=== PATIENT | female | born 1980 | race Caucasian/White ===

== ENCOUNTER → 2017-06-24 | Outpatient (CLI) | payer BC ==
[~2017-06-24] MED LIST: LBT200T PO; PREN1TAB39 PO
== END ==
LOC: LAB 09:41
PROVIDERS: ATTEND Obstetrics & Gynecology
DX: O20.9 Hemorrhage in early pregnancy, unspecified (principal)
CPT/HCPCS: 36415; 84702

== ENCOUNTER → 2017-06-26 | Outpatient (CLI) | payer BC ==
--- NOTE | 2017-06-26 13:01 | Diagnostic Imaging Report ---
PROCEDURE: US OB SINGLE FETUS <14 WKS. TECHNIQUE: Multiple real-time grayscale images were obtained over the gravid uterus in various projections. INDICATION: First trimester vaginal bleeding. There is an intrauterine gestational sac containing a pole. The crown-rump length measurement is 2.2 cm consistent with 9 weeks zero days gestation. heart rate was recorded at 179 beats per minute. There is an area of probable subchronic hemorrhage measuring 2.9 x 1.5 x 2.4 cm. Left ovary was not visualized. The right ovary is unremarkable. No free fluid is seen. IMPRESSION: Single live IUP approximately 9 weeks zero days gestational age with an estimated date of confinement sonographically of 01/29/2018. There is a moderate-sized subchorionic bleed present. Dictated by: Dictated on workstation # [id number]
== END ==
LOC: RAD 12:03
PROVIDERS: ATTEND Obstetrics & Gynecology
DX: O20.9 Hemorrhage in early pregnancy, unspecified (principal); Z3A.09 9 weeks gestation of pregnancy
CPT/HCPCS: 76801

== ENCOUNTER 2017-07-13 16:04 | Emergency (ER) | payer BC ==
[~2017-07-13] VITALS: Ht 157.5 cm; Wt 86.2 kg
--- NOTE | 2017-07-13 17:05 | Diagnostic Imaging Report ---
PROCEDURE: US OB single fetus <14 wks. TECHNIQUE: Multiple real-time grayscale images were obtained over the gravid uterus in various projections. INDICATION: Subchorionic hematoma. FINDINGS: There is an elongated gestational sac present with pole present. Embryonic cardiac activity is present with a rate of 176 beats per minute. [place]-rump length is 5.2 cm indicating gestational age of 11 weeks and 6 days. Multiple hypoechoic regions are present in the placenta and in the subchorionic region indicating probable subchorionic hematoma which measure up to 2.5 x 2.5 x 0.8 cm. Maternal adnexal regions are poorly visualized without evidence of abnormality. IMPRESSION: 1. Elongated gestational sac and multiple small subchorionic hematomas. Short-term ultrasound followup is recommended. 2. Estimated gestational age is 11 weeks and 6 days with sonographic EDC of 01/29/2018. Dictated by: Dictated on workstation # [id number]
[2017-07-13 17:19] LABS: BASOPHILS # (AUTO) 0.1 10^3/uL (0.0-0.1); BASOPHILS % (AUTO) 1 % (0-10); EOSINOPHILS # (AUTO) 0.6 10^3/uL (0.0-0.3); EOSINOPHILS % (AUTO) 5 % (0-10); HEMATOCRIT 39 % (35-52); HEMOGLOBIN 13.3 G/DL (11.5-16.0); LYMPHOCYTES # (AUTO) 1.8 X 10^3 (1.0-4.0); LYMPHOCYTES % (AUTO) 15 % (12-44); MEAN CORPUSCULAR HEMOGLOBIN 28 PG (25-34); MEAN CORPUSCULAR HGB CONC 34 G/DL (32-36); MEAN CORPUSCULAR VOLUME 81 FL (80-99); MEAN PLATELET VOLUME 9.7 FL (7.4-10.4); MONOCYTES # (AUTO) 0.8 X 10^3 (0.0-1.0); MONOCYTES % (AUTO) 7 % (0-12); NEUTROPHILS # (AUTO) 8.5 X 10^3 (1.8-7.8); NEUTROPHILS % (AUTO) 73 % (42-75); PLATELET COUNT 345 10^3/uL (130-400); RED BLOOD COUNT 4.79 10^6/uL (4.35-5.85); RED CELL DISTRIBUTION WIDTH 14.2 % (10.0-14.5); WHITE BLOOD COUNT 11.7 10^3/uL (4.3-11.0)
--- NOTE | 2017-07-13 17:28 | ED GU-Female ---
General Chief Complaint: -Female Stated Complaint: 11.5WEEKS, HEMROGING Nursing Triage Note: PT CO OF GOING TO BATHROOM AND HAVING A STOOL FULL OF BLOOD, PT DENIES CRAMPING OR BACK ACHE. PT STATES DID HAVE BLEEDING AT APPROX 8 WEEKS AND HAD CLOT NOTED Nursing Sepsis Screen: No Definite Risk Source: patient, family, spouse Exam Limitations: no limitations History of Present Illness Date Seen by Provider: Jul 13, 2017 Time Seen by Provider: 16:15 Initial Comments 37-year-old female patient presents to the emergency department on complaints of vaginal bleeding. Patient is currently 11.5 weeks gestation Patient reports she has been bleeding intermittently since 8 weeks gestation. Now is having large clots. Has had 3 ultrasounds are out this showing subchorionic hemorrhage/hematomas. Denies cramping, back pain, fever, dysuria, nausea, vomiting. Patient sees Dr. Wen Hodge. Timing/Duration: other (onset and 8 weeks gestation.) Severity/Quality: moderate Location: vaginal Radiation: none Prior Genitourinary Problems: similar symptoms Allergies and Home Medications Allergies Coded Allergies: No Known Drug Allergies (Unverified , 04/07/11) Home Medications Clindamycin HCl 300 Mg Capsule, 300 MG PO QID, #28 Ref 0 Prescribed by: ALEXA MATA on 07/13/172045 Vits W-Ca,Fe,Fa(<1MG) 1 Each Tablet, 1 EACH PO DAILY, (Reported) Constitutional: No chills, No diaphoresis, No dizziness, No fever, No malaise EENTM: no symptoms reported Respiratory: no symptoms reported Cardiovascular: no symptoms reported Gastrointestinal: No abdominal pain, No constipation, No diarrhea, No nausea, No vomiting Genitourinary: see HPI, denies burning, denies discharge, denies dysuria, denies frequency, denies flank pain, denies pain, other ((+) vaginal bleeding) : Yes Musculoskeletal: no symptoms reported Skin: no symptoms reported Psychiatric/Neurological: No Symptoms Reported All Other Systemes Reviewed Negative Unless Noted: Yes (Negative excepted noted.) Past Atduspr-Oqikjq-Bridya Hx Patient Social History Alcohol Use: Denies Use Recreational Drug Use: No Smoking Status: Never a Smoker Recent Foreign Travel: No Contact w/Someone Who Travel: No Recent Infectious Disease Expo: No Recent Hopitalizations: No Physical Abuse: No Sexual Abuse: No Surgeries History of Surgeries: Yes (T&A, Breast reduction) Respiratory History of Respiratory Disorde: No Cardiovascular History of Cardiac Disorders: Yes Neurological History of Neurological Disord: No Reproductive System : Yes (11.5 WEEKS) Last Menstrual Period: Apr 24, 2017 Hx : 2 Hx Para: 1 Hx Total # of Abortions (Spona: 0 Hx Reproductive Disorders: No Female Reproductive Disorders: Denies Gastrointestinal History of Gastrointestinal Di: No Musculoskeletal History of Musculoskeletal Dis: No Endocrine History of Endocrine Disorders: No Psychosocial History of Psychiatric Problem: No Suicide Risk Score: 0 Blood Transfusions History of Blood Disorders: No Reviewed Nursing Assessment Reviewed/Agree w Nursing PMH: Yes Family Medical History Significant Family History: No Pertinent Family Hx Physical Exam Vital Signs Vital Signs - First Documented 07/13/17 07/13/17 16:10 20:41 Temp 96.9 Pulse 88 Resp 18 B/P (MAP) 127/91 (103) Pulse Ox 97 O2 Delivery Room Air Capillary Refill : Less Than 3 Seconds General Appearance: WD/WN, no apparent distress HEENT: PERRL/EOMI, pharynx normal Neck: supple, normal inspection Cardiovascular: normal peripheral pulses, regular rate, rhythm, no edema, no murmur Respiratory: lungs clear, normal breath sounds, no respiratory distress, no accessory muscle use Gastrointestinal: normal bowel sounds, non tender, soft, no organomegaly, no pulsatile mass Back: normal inspection, no CVA tenderness Extremities: no pedal edema, no calf tenderness, normal capillary refill Neurologic/Psychiatric: alert, normal mood/affect, oriented x 3 Skin: normal color, warm/dry Progress/Results/Core Measures Suspected Sepsis Recent Fever Within 48 Hours: No Infection Criteria Present: None New/Unexplained Altered Menta: No Sepsis Screen: No Definite Risk Sepsis Diagnosis: SIRS Temperature:96.9 Pulse: 88 Respiratory Rate: 18 Laboratory Tests 07/13/17 17:12: White Blood Count 11.7H Blood Pressure 127 /91 Mean: 103 Laboratory Tests 07/13/17 17:12: Creatinine 0.69, Platelet Count 345, Total Bilirubin 0.2 Results/Orders Lab Results My Orders Vital Signs/I&O Capillary Refill : Less Than 3 Seconds Blood Pressure Mean: 103 Diagnostic Imaging Diagonstic Imaging: Ultrasound Plain Films/CT/US/NM/MRI: pelvis Comments US OB SINGLE FETUS<14 [id number] PROCEDURE: US OB single fetus <14 wks. TECHNIQUE : Multiple real-time grayscale images were obtained over the gravid uterus in various projections. INDICATION: Subchorionic hematoma. FINDINGS: There is an elongated gestational sac present with pole present. Embryonic cardiac activity is present with a rate of 176 beats per minute. [place]-rump length is 5.2 cm indicating gestational age of 11 weeks and 6 days. Multiple hypoechoic regions are present in the placenta and in the subchorionic region indicating probable subchorionic hematoma which measure up to 2.5 x 2.5 x 0.8 cm. Maternal adnexal regions are poorly visualized without evidence of abnormality. IMPRESSION: 1. Elongated gestational sac and multiple small subchorionic hematomas. Short-term ultrasound followup is recommended. 2. Estimated gestational age is 11 weeks and 6 days with sonographic EDC of 01/29/2018. Dictated on workstation # [id number] Reviewed: Reviewed by Me (radiology report reviewed by me) Departure Communication (Admissions) Progress Notes Patient case discussed with Dr. Caceres. Recommends bedrest with lower extremity elevation and discharged to home. Request patient to follow-up as an outpatient with Dr. Hodge in her office early next week. Request patient to contact her office tomorrow morning for appointment time. Laboratory findings, diagnostic study findings, and recommendations by Dr. Caceres discussed with the patient. Patient verbalizes understanding and agrees with the treatment plan. Patient case discussed with Dr. Hou, he agrees with the plan of care. Impression Impression: Primary Impression: Subchorionic hemorrhage of placenta in first trimester Additional Impression: with 11 completed weeks gestation Disposition: HOME, SELF-CARE Condition: Improved Departure-Patient Inst. Decision time for Depature: 19:55 Referrals: JACEK COLEY MD (PCP) Primary Care Physician WEN HODGE DO (Family) Primary Care Physician Patient Instructions: Bleeding With (DC), Threatened Miscarriage (DC) Add. Discharge Instructions: All discharge instructions reviewed with patient and/or family. Voiced understanding. Tylenol over the counter as directed for pain. No strenuous activities. Elevate the lower extremities above the level of the heart. Bedrest. Follow-up with Dr. Hodge tomorrow or Monday for recheck, call tomorrow morning for appointment time. Return to the emergency department for worsened pain, vaginal bleeding with greater than 2 pads per hour for greater than 2 hours, vaginal discharge, fever , difficulty with urination, abdominal swelling, dizziness, chest pain, or any other concerns. Scripts Clindamycin HCl (Cleocin HCl) 300 Mg Capsule 300 MG PO QID, #28 CAP 0 Refills Prov: ALEXA MATA 07/13/17 Work/School Note: Work Release Form Date Seen in the Emergency Department: Jul 13, 2017 Restrictions: Need Release from Doctor Other Restrictions Listed Below: Bedrest until released by Dr. Hodge. ALEXA MATA Jul 13, 2017 17:28
[2017-07-13 17:38] LABS: ALANINE AMINOTRANSFERASE 31 U/L (0-55); ALBUMIN 3.8 GM/DL (3.2-4.5); ALKALINE PHOSPHATASE 73 U/L (40-136); BILIRUBIN,TOTAL 0.2 MG/DL (0.1-1.0); BUN/CREATININE RATIO 12; CALCIUM 8.9 MG/DL (8.5-10.1); CARBON DIOXIDE 24 MMOL/L (21-32); CHLORIDE 104 MMOL/L (98-107); CREATININE SERUM 0.69 MG/DL (0.60-1.30); GFR ESTIMATED > 60; GLUCOSE 97 MG/DL (70-105); POTASSIUM 3.8 MMOL/L (3.6-5.0); SODIUM 136 MMOL/L (135-145); TOTAL PROTEIN 6.8 GM/DL (6.4-8.2)
[2017-07-13 20:21] LABS: BILIRUBIN,URINE NEGATIVE (NEGATIVE); CLARITY,URINE CLEAR; COLOR,URINE YELLOW; GLUCOSE, URINE (UA) NEGATIVE (NEGATIVE); KETONES,URINE NEGATIVE (NEGATIVE); LEUKOCYTE ESTERASE ,URINE NEGATIVE (NEGATIVE); NITRITE,URINE NEGATIVE (NEGATIVE); PH,URINE 6 (5-9); PROTEIN,URINE NEGATIVE (NEGATIVE); UROBILINOGEN,URINE NORMAL (NORMAL)
[2017-07-13 20:41] VITALS: BP 122/82
[2017-07-13] MEDS ORDERED: RX-CLINDAMYCIN 150 MG (CLEOCIN) CAP PPK#4 PO STA (20:43)
[2017-07-13] MEDS ORDERED: CLIN300C3 PO (20:46)
== END 2017-07-13 20:45 | disposition home or self-care (01) ==
LOC: EDUNIT# 16:04 → ER 16:06
DX: O20.8 Other hemorrhage in early pregnancy (principal); Z3A.11 11 weeks gestation of pregnancy
CPT/HCPCS: 36415; 51701; 76801; 80053; 81000; 84702; 85025; 86900; 86901; 99284

== ENCOUNTER → 2017-09-11 | Outpatient (CLI) | payer BC ==
[~2017-09-11] MED LIST changes: +CLIN300C3 PO
--- NOTE | 2017-09-11 17:39 | Diagnostic Imaging Report ---
INDICATION: survey. EXAMINATION: Ultrasound OB, greater than 14 weeks, from 09/11/2017. COMPARISON: 07/13/2017. FINDINGS: Grayscale and color Doppler ultrasound imaging of the pelvis is performed, transabdominal. Single live intrauterine gestation is noted measuring 20 weeks and 5 days by today's sonogram with the previous measurement of 20 weeks 0 days by previous sonogram. There has been appropriate interval growth. heart rate is approximately 138 beats per minute. Amniotic fluid index is within normal limits. Placenta is anterior and unremarkable. Cervix measures at least 5.3 cm in length. The visualized anatomy is unremarkable, however portions not seen including the spine and cord insertion due to positioning. IMPRESSION: 1. Single live intrauterine gestation measuring 20 weeks 0 days by first sonogram with appropriate interval growth since previous. 2. No gross abnormalities, although portions of the fetus not well evaluated, as noted above due to positioning. This could be reevaluated at a short-term interval, as clinically warranted. Biometrical measurements are as follows: Biparietal 4.71 cm, age 20 weeks 2 days. Head circumference 17.85 cm, age 20 weeks 3 days. Abdominal circumference 15.93 cm, age 21 weeks 1 days. Femur length 3.43 cm, age 20 weeks 6 days. Sonographic estimate age: 20 weeks 5 days. Sonographic estimated date of delivery: 01/24/2018. Estimated Weight: 381 gm (+/- 56 gm). LMP percentile: 88%. heart rate: 138 beats per minute. number: 1 of 1. Dictated by: Dictated on workstation # [id number]
== END ==
LOC: RAD 15:48
PROVIDERS: ATTEND Obstetrics & Gynecology
DX: Z36.89 Encounter for other specified antenatal screening (principal); Z3A.20 20 weeks gestation of pregnancy
CPT/HCPCS: 76805

== ENCOUNTER → 2017-12-04 | Outpatient (CLI) | payer BC ==
[~2017-12-04] MED LIST changes: +DOCU-143 PO; +IBUP-1780 PO; +OXYC-197 PO; +PREN1TAB86 PO
--- NOTE | 2017-12-04 13:01 | Diagnostic Imaging Report ---
INDICATION: Followup spine and cord insertion. TECHNIQUE: Multiple real-time grayscale images were obtained over the gravid uterus. COMPARISON: 09/11/2017. FINDINGS: There is a single live fetus in a cephalic presentation. heart rate was recorded at 167 beats per minute. The placenta is fundal. Amniotic fluid index is 10.3 cm. Cervical length is 4.1 cm. spine was visualized today and unremarkable. The cord insertion is still not well visualized due to position. Biometrical measurements are as follows: Biparietal 8.31 cm, age 33 weeks 4 days. Head circumference 31.48 cm, age 35 weeks 3 days. Abdominal circumference 30.03 cm, age 34 weeks 0 days. Femur length 6.36 cm, age 33 weeks 0 days. Sonographic estimate age: 34 weeks 0 days. Sonographic estimated date of delivery: 01/15/2018. Estimated Weight: 2269 gm (+/- 331 gm). LMP percentile: 90%. heart rate: 167 beats per minute. number: 1 of 1. IMPRESSION: Single live IUP of approximately 34 weeks gestational age demonstrates normal interval growth when compared with exam from 09/11/2017. Cord insertion is not well seen on today's study. No other significant abnormality is seen. Dictated by: Dictated on workstation # [id number]
== END ==
LOC: RAD 11:56
PROVIDERS: ATTEND Obstetrics & Gynecology
DX: O26.843 Uterine size-date discrepancy, third trimester (principal); Z3A.34 34 weeks gestation of pregnancy
CPT/HCPCS: 76816

== ENCOUNTER 2017-12-30 02:03 | Inpatient (IN) | payer BC ==
[~2017-12-30] VITALS: Ht 157.5 cm; Wt 97.5 kg
[2017-12-30] VITALS (43 sets, daily range): BP systolic 94–144; BP diastolic 55–93
[~2017-12-30 02:03] MED LIST changes: -DOCU-143 PO; -IBUP-1780 PO; -OXYC-197 PO; -PREN1TAB86 PO
[2017-12-30] MEDS ORDERED: PREN1TAB86 PO (02:17)
[2017-12-30] MEDS ORDERED: AMPICILLIN INJECTION 2,000 MG in NS (IVPB) 50 ML IV SCH (02:29)
[2017-12-30] MEDS ORDERED: NS (IVPB) 50 ML ONE (02:37)
[2017-12-30] MEDS ORDERED: AMPICILLIN 2000 MG INJECTION (IM/IV) ONE (02:37)
[2017-12-30] MEDS: D5 LR IV SOLUTION 1,000 ML IV SCH ×2 (03:07→11:11)
[2017-12-30 03:14] LABS: BASOPHILS # (AUTO) 0.1 10^3/uL (0.0-0.1); BASOPHILS % (AUTO) 1 % (0-10); EOSINOPHILS # (AUTO) 0.5 10^3/uL (0.0-0.3); EOSINOPHILS % (AUTO) 4 % (0-10); HEMATOCRIT 36 % (35-52); HEMOGLOBIN 12.5 G/DL (11.5-16.0); LYMPHOCYTES # (AUTO) 1.9 X 10^3 (1.0-4.0); LYMPHOCYTES % (AUTO) 17 % (12-44); MEAN CORPUSCULAR HEMOGLOBIN 28 PG (25-34); MEAN CORPUSCULAR HGB CONC 35 G/DL (32-36); MEAN CORPUSCULAR VOLUME 79 FL (80-99); MEAN PLATELET VOLUME 10.2 FL (7.4-10.4); MONOCYTES # (AUTO) 0.9 X 10^3 (0.0-1.0); MONOCYTES % (AUTO) 8 % (0-12); NEUTROPHILS % (AUTO) 71 % (42-75); PLATELET COUNT 340 10^3/uL (130-400); RED BLOOD COUNT 4.55 10^6/uL (4.35-5.85); RED CELL DISTRIBUTION WIDTH 14.9 % (10.0-14.5); WHITE BLOOD COUNT 11.3 10^3/uL (4.3-11.0)
[2017-12-30] MEDS ORDERED: BUTORPHANOL INJ 2 MG/ML (STADOL) VIAL IV ONE (03:15)
[2017-12-30] MEDS ORDERED: OXYTOCIN/NORMAL SALINE 500 ML IV ONE (05:34)
[2017-12-30] MEDS ORDERED: CATHETER FLUSH 10 ML SYR IV SCH (06:00)
[2017-12-30] MEDS ORDERED: OXYTOCIN/NORMAL SALINE 500 ML IV SCH ×2 (06:33→14:00)
[2017-12-30] MEDS: AMPICILLIN INJECTION 1,000 MG in NS (IVPB) 50 ML IV SCH ×2 (06:43→11:00)
[2017-12-30] MEDS ORDERED: SUFENTA 0.6MCG/ML BUPIVA 0.125 100 ML ONE (06:46)
--- NOTE | 2017-12-30 07:58 | History & Physical ---
History and Physical Date Seen by Provider: Dec 30, 2017 Time Seen by Provider: 07:54 This patient is a 37-year-old 3 para [address] Wilson who presented with complaint of spontaneous rupture membranes. Dr. Wilson is not available. She is 35-5/7 weeks gestation. She's had no problems with this to date. Denies bleeding. She is having only occasional contraction on admission. She has been stable through the night as she was making progress and not supriya irregularly she has been started on Pitocin for augmentation of labor. She was started empirically on ampicillin for GBS prophylaxis. Apparently GBS culture has been obtained but that result was not available. Allergies are to sulfa drugs Medications are vitamins Past medical history, past surgical history, obstetric history, family history, and social histories are per the antepartum record HEENT exam is normal Neck is supple no lymphadenopathy no thyromegaly Abdomen is gravid soft nontender nondistended Extremities show clubbing cyanosis. There is no Homans. Pelvic exam per the nurse shows a cervix for similar dilated with a vertex presentation. Laboratory Tests 12/30/17 02:50 Vital Signs Date Time Temp Pulse Resp B/P (MAP) Pulse Ox O2 Delivery O2 Flow Rate FiO2 12/30/17 06:50 107 18 116/77 (90) Room Air 12/30/17 06:35 104 18 110/68 (82) Room Air 12/30/17 06:10 117 18 116/67 (83) Room Air 12/30/17 05:40 98 18 136/80 (98) Room Air 12/30/17 04:30 100 18 118/86 (97) Room Air 12/30/17 03:30 97.4 107 18 120/76 (91) Room Air 12/30/17 02:20 98.0 115 18 131/90 (104) Room Air Vital signs are stable. Patient is afebrile. Lab work is normal. Assessment and plan spontaneous rupture membranes. Dr. Wilson is not available and I am covering in her place Patient is 35 5/7 weeks' gestation as she does have rupture membranes we will facilitate delivery via augmentation with Pitocin. She had been allow an epidural. Weighted speculum vaginal delivery. spontaneous rupture membranes Allergies and Home Medications Allergies Coded Allergies: Sulfa (Sulfonamide Antibiotics) (Verified Allergy, Unknown, 12/30/17) Home Medications Vit W-Ca,Fe,FA(<1 mg) 1 Each Tablet, 1 EACH PO DAILY, (Reported) Patient Home Medication List Home Medication List Reviewed: No Clinical Quality Measures DVT/VTE Risk/Contraindication: Risk Factor Score Per Nursin RFS Level Per Nursing on Admit: 1=Low/No VTE PPX MIGUEL GUERRA MD Dec 30, 2017 7:58 am
[2017-12-30] MEDS ORDERED: LACTATED RINGERS 1,000 ML IV SCH (08:10)
[2017-12-30] MEDS ORDERED: ONDANSETRON 4 MG/2 ML (SDV) Z0FRAN IV PRN (08:15)
[2017-12-30] MEDS ORDERED: EPIDURAL (SUFENTA 0.6MCG/ML BUPIVA 0.125%) 100 ML BAG EPI SCH (08:15)
[2017-12-30] MEDS ORDERED: METOCLOPRAMIDE INJ 10 MG/2 ML (REGLAN) IV PRN (08:15)
[2017-12-30] MEDS ORDERED: diphenhydrAMINE 50 MG/ML INJ (BENADRYL) IV PRN (08:15)
[2017-12-30] MEDS ORDERED: NALOXONE 0.4 MG/ML 1 ML (NARCAN) VIAL IV PRN ×2 (08:15)
[2017-12-30] MEDS ORDERED: LIDOCAINE PF 2% 5 ML (XYLOCAINE) VIAL ONE (10:36)
[2017-12-30] MEDS ORDERED: LIDOCAINE/EPI 2% 1:200,00 (XYLOCAINE) 10 ML VIAL ONE (11:13)
[2017-12-30] MEDS ORDERED: OXYC-197 PO (11:19)
[2017-12-30] MEDS ORDERED: DOCU-143 PO (11:19)
[2017-12-30] MEDS ORDERED: IBUP-1780 PO (11:19)
--- NOTE | 2017-12-30 11:20 | Discharge Instructions ---
Discharge Instructions Discharge Medications New, Converted or Re-Newed RX: RX on Chart Patient Instructions Patient Instructions: As directed Return to The Hospital For: As directed Activity & Diet Discharge Diet: No Restrictions Activity as Tolerated: No Orders-Post D/C & Referrals Follow Up Appt: Call to make follow up appt. for patient in [address] Wilson. Activity Per routine post vaginal delivery instructions. Diet as tolerated Patient may shower or tub bathe as desired. MIGUEL GUERRA MD Dec 30, 2017 11:20 am
[2017-12-30] MEDS ORDERED: LIDOCAINE/EPI 2% 1:200,00 (XYLOCAINE) 10 ML VIAL INJ ONE (11:50)
[2017-12-30] MEDS ORDERED: TETANUS,DIPTH,PERTUSS P/F (BOOSTRIX) 0.5 ML VIAL IM ONE (14:00)
[2017-12-30] MEDS ORDERED: MEASLES,MUMPS,RUBELLA 1 EA INJ SC ONE (14:00)
[2017-12-30] MEDS: KETOROLAC 30 MG/ML VIAL IV SCH ×2 (14:00→20:00)
[2017-12-30] MEDS ORDERED: BENZOCAINE/MENTHOL (DERMOPLAST) 56 ML CAN TP PRN (14:00)
[2017-12-30] MEDS ORDERED: ONDANSETRON 4 MG/2 ML (SDV) Z0FRAN IVP PRN (14:00)
[2017-12-30] MEDS ORDERED: BENZOCAINE/MENTHOL (DERMOPLAST) 56 ML CAN TP ONE (14:04)
[2017-12-30] MEDS ORDERED: KETOROLAC 30 MG/ML VIAL ONE (14:04)
--- NOTE | 2017-12-30 16:01 | OPERATIVE REPORT ---
DATE OF SERVICE: 12/30/2017 DELIVERY NOTE The patient delivered by spontaneous vaginal delivery, a viable male with Apgars of 7 and 8 at one and five minutes respectively, time is 11:55, Cord pH is pending and weight is 7 lbs. 2 oz. The delivered over a first-degree perineal laceration under epidural augmented with local in the perineum. The was bulb suctioned on delivery of the head and again on completion of delivery. The umbilical cord when near pulseless was doubly clamped and father cut the cord, the baby was passed to mom's abdomen. Dr. Santana was in attendance for delivery and eventually took the baby to the warmer for evaluation and resuscitation. The was quickly pink, moved all extremities, had a spontaneous cry although was not lusty. The tone and reflexes were normal. The cord bloods were obtained. The placenta was delivered spontaneously [place]. It was a [place] placenta with a 3-vessel cord. The placenta was fairly heavily calcified for 35 weeks. It is going to pathology for permanent section. The cervix, vagina, rectum and perineum were examined and found intact, except for a first-degree perineal laceration that was repaired in the usual manner with a single suture of 3-0 Vicryl Rapide. Sponge and needle counts were correct on completion of the delivery and the repair. Estimated blood loss was less than 150 mL. The patient tolerated the delivery and the repair well and remained in the LDR. Dr. Santana had taken the baby stable to the full term nursery. Job ID: [id number] DocumentID: [id number] Dictated Date: 12/30/2017 12:16:02 Corporate Legal Assistant Date: 12/30/2017 16:00:17 Dictated By: MIGUEL GUERRA MD [facility]
[2017-12-30] MEDS: DOCUSATE SODIUM 100 MG (COLACE) CAP PO SCH (21:59)
[2017-12-31] VITALS: BP 106/68
[2017-12-31] MEDS ORDERED: IBUPROFEN 800 MG (MOTRIN) TAB PO ONE ×2 (02:01→08:18)
[2017-12-31] MEDS: IBUPROFEN 800 MG (MOTRIN) TAB PO SCH ×4 (02:10→22:15)
[2017-12-31 04:00] VITALS: BP 120/76
[2017-12-31] MEDS: oxyCODONE/APAP 5/325MG (PERCOCET 5) TABLET PO PRN ×4 (06:27→23:30)
--- NOTE | 2017-12-31 08:18 | Progress Note-Standard ---
Standard Progress Note Progress Notes/Assess & Plan Date Seen by Provider: Dec 31, 2017 Time Seen by Provider: 08:17 Progress/Assessment & Plan This patient is without complaint. She is ablating, voiding, tolerating oral intake well and has good pain control. Patient denies chest pain, denies shortness of breath, denies nausea vomiting, and denies headache. Vital Signs 12/31/17 04:00 Temp 96.9 Pulse 87 Resp 18 B/P (MAP) 120/76 (91) Pulse Ox 98 O2 Delivery Room Air Vital signs are stable. Patient is afebrile. Fundus is firm below the umbilicus and nontender. Extremities show no clubbing cyanosis. There is no Homans sign. Assessment and plan day number 1 status post spontaneous vaginal delivery doing well. Plan is for routine convalescence care today and discharge home tomorrow. Baby is not discharged home will be allowed discharge. MIGUEL GUERRA MD Dec 31, 2017 8:18 am
[2017-12-31] MEDS: DOCUSATE SODIUM 100 MG (COLACE) CAP PO SCH ×2 (08:37→22:15)
[2017-12-31 08:39] VITALS: BP 117/81
--- NOTE | 2017-12-31 10:49 | Anesthesia-Regional Post-Op ---
Regional Patient Condition Mental Status: Alert, Oriented x3 Circulation: Same as Pre-Op Headache: Absent Sensation: Full Recovery Motor Block: Absent Post Op Complications Complications None Follow Up Care/Instructions Patient Instructions None needed. Anesthesia/Patient Condition Patient is doing well, no complaints, stable vital signs, no apparent adverse anesthesia problems. No complications reported per nursing. KITA VIEIRA CRNA Dec 31, 2017 10:49
[2017-12-31 14:35] VITALS: BP 122/80
[2017-12-31 22:20] VITALS: BP 115/81
[2018-01-01] MEDS: IBUPROFEN 800 MG (MOTRIN) TAB PO SCH ×3 (06:08→18:25)
--- NOTE | 2018-01-01 07:41 | Progress Note-Standard ---
Standard Progress Note Progress Notes/Assess & Plan Date Seen by Provider: Jan 01, 2018 Time Seen by Provider: 07:40 Progress/Assessment & Plan This patient is without complaint. She is ablating, voiding, tolerating oral intake well and has good pain control. Patient denies chest pain, denies shortness of breath, denies nausea vomiting, and denies headache. Vital Signs 12/31/17 04:00 Temp 96.9 Pulse 87 Resp 18 B/P (MAP) 120/76 (91) Pulse Ox 98 O2 Delivery Room Air Vital signs are stable. Patient is afebrile. Fundus is firm below the umbilicus and nontender. Extremities show no clubbing cyanosis. There is no Homans sign. Assessment and plan day number 1 status post spontaneous vaginal delivery doing well. Plan is for routine convalescence care today and discharge home tomorrow. Baby is not discharged home will be allowed discharge. January 01, 2018 Patient is without complaint. She is ambulating, voiding, tolerating oral intake well, has good pain control. Patient is ready for discharge home. Her baby may not be discharged if not then she will room in Vital Signs 12/31/17 12/31/17 14:35 22:20 Temp 97.4 Pulse 85 Resp 20 B/P (MAP) 115/81 (92) Pulse Ox 98 O2 Delivery Room Air Vital signs are stable. Patient afebrile. Fundus is firm below the umbilicus and nontender. Extremities show clubbing cyanosis. There is no Homans sign. There is some pretibial pitting edema that is normal. Assessment and plan day number 2 status post spontaneous vaginal delivery at 35+ weeks gestation. Plan is for discharge home. If patient baby is not discharged then this patient will room in Final Diagnosis spontaneous vaginal delivery MIGUEL GUERRA MD Jan 01, 2018 7:41 am
[2018-01-01 09:30] VITALS: BP 120/79
[2018-01-01] MEDS: DOCUSATE SODIUM 100 MG (COLACE) CAP PO SCH (09:34)
[2018-01-01 12:31] VITALS: BP 128/89
[2018-01-01] MEDS: oxyCODONE/APAP 5/325MG (PERCOCET 5) TABLET PO PRN (12:32)
== END 2018-01-01 18:35 | disposition home or self-care (01) | DRG 775 ==
LOC: WSo 02:03 → LDRP 02:04 → WSo 02:36 → LDRP 02:38
PROVIDERS: ADMIT Obstetrics & Gynecology; ATTEND Obstetrics & Gynecology
PROC: 10E0XZZ Delivery of Products of Conception, External Approach (ICD-10-PCS; principal; 2017-12-30)
PROC: 0HQ9XZZ Repair Perineum Skin, External Approach (ICD-10-PCS; 2017-12-30)
DX: O42.013 Preterm premature rupture of membranes, onset of labor within 24 hours of rupture, third trimester (principal); O70.0 First degree perineal laceration during delivery; Z3A.35 35 weeks gestation of pregnancy; Z37.0 Single live birth
CPT/HCPCS: 36415; 85025; 86850; 86900; 86901; 99212

== ENCOUNTER 2018-02-04 14:04 | Emergency (ER) | payer BC, OTHER ==
[~2018-02-04] VITALS: Ht 157.5 cm; Wt 85.3 kg
[~2018-02-04 14:04] MED LIST changes: +DOCU-143 PO; +IBUP-1780 PO; +OXYC1TAB87 PO; +PREN1TAB86 PO
[2018-02-04] MEDS ORDERED: fentaNYL INJECTION 100 MCG/2 ML AMP IVP STA (14:47)
[2018-02-04] MEDS ORDERED: NS IV 1000 ML 1,000 ML IV ONE (14:47)
[2018-02-04] MEDS ORDERED: ONDANSETRON 4 MG/2 ML (SDV) Z0FRAN IVP ONE (15:00)
--- NOTE | 2018-02-04 15:08 | ED Abdominal Pain ---
General Chief Complaint: Abdominal/GI Problems Stated Complaint: ABD PAIN Source of Information: Patient Exam Limitations: No Limitations History of Present Illness Date Seen by Provider: Feb 04, 2018 Time Seen by Provider: 14:45 Initial Comments Here with report of right upper quadrant pain associated with fever and chills as well as nausea and vomiting. Denies diarrhea or dysuria. Recently had delivery of her baby on December 30. She currently is breast-feeding. Pain is to the right side and radiates to the back. Moderate to severe in intensity. Timing/Duration: 2-3 Days, Getting Worse Severity/Quality: Moderate, Severe, Aching Location: RUQ Radiation: Back Modifying Factors: Worsens With Movement Associated Symptoms: Back Pain, Fever/Chills, Nausea/Vomiting; No Weakness Allergies and Home Medications Allergies Coded Allergies: Sulfa (Sulfonamide Antibiotics) (Verified Allergy, Unknown, 02/04/18) Home Medications Docusate Sodium 100 Mg Capsule, 100 MG PO BID Prescribed by: MIGUEL PINEDA on 12/30/17 1119 Ibuprofen 800 Mg Tablet, 800 MG PO Q6H PRN for PAIN Prescribed by: MIGUEL PINEDA on 12/30/17 1119 Oxycodone HCl/Acetaminophen 1 Each Tablet, 1-2 EACH PO Q4H Prescribed by: MIGUEL PINEDA on 12/30/17 1119 Vit W-Ca,Fe,FA(<1 mg) 1 Each Tablet, 1 EACH PO DAILY, (Reported) Patient Home Medication List Home Medication List Reviewed: Yes (.) Review of Systems Review of Systems Constitutional: see HPI, chills, fever EENTM: No Symptoms Reported (Babs know that we'll) Respiratory: Denies Cough, Denies Shortness of Air Cardiovascular: No Symptoms Reported Gastrointestinal: Abdominal Pain, Nausea, Vomiting Genitourinary: No Symptoms Reported Musculoskeletal: no symptoms reported All Other Systems Reviewed Negative Unless Noted: Yes Past Uurjvvw-Jzqseu-Ptlttc Hx Past Med/Social Hx: Reviewed Nursing Past Med/Soc Hx ( well but no) Patient Social History Alcohol Use: Denies Use Recreational Drug Use: No Smoking Status: Never a Smoker Recent Foreign Travel: No Contact w/Someone Who Travel: No Recent Hopitalizations: No Seasonal Allergies Seasonal Allergies: No Past Medical History Surgeries: Yes (T&A, Breast reduction) Orthopedic Respiratory: No Cardiac: Yes Neurological: No Reproductive Disorders: No Female Reproductive Disorders: Denies Genitourinary: No Gastrointestinal: No Musculoskeletal: No Endocrine: No HEENT: No Cancer: No Psychosocial: No Integumentary: No Blood Disorders: No Family Medical History Reviewed Nursing Family Hx Diabetes mellitus 19 MOTHER FH: hyperlipidemia 19 MOTHER FH: melanoma 19 MOTHER Hypertension 19 MOTHER No Pertinent Family Hx Physical Exam Vital Signs Vital Signs - First Documented 02/04/18 14:48 Temp 97.9 Pulse 107 Resp 22 B/P (MAP) 129/73 (91) Pulse Ox 99 O2 Delivery Room Air Capillary Refill : Height/Weight/BMI Height: 5'2.00" Weight: 215lbs. 0.0oz. 97.822739pu; 39.3 BMI Method:Stated General Appearance: WD/WN, no apparent distress HEENT: PERRL/EOMI, pharynx normal Neck: full range of motion, supple Respiratory: lungs clear, normal breath sounds Cardiovascular: no murmur, tachycardia Peripheral Pulses: 2+ Dorsalis Pedis (R), 2+ Left Dors-Pedis (L), 2+ Radial Pulses (R), 2+ Radial Pulses (L) Gastrointestinal: soft, guarding, rebound, tenderness (right upper quadrant) Extremities: non-tender, normal inspection Back: normal inspection, no CVA tenderness, no vertebral tenderness Neurologic/Psychiatric: alert, oriented x 3 Skin: normal color, warm/dry Progress/Results/Core Measures Results/Orders Lab Results Laboratory Tests Test 02/04/18 15:45 02/04/18 16:30 Range/Units White Blood Count 27.4 H 4.3-11.0 10^3/uL Red Blood Count 5.22 4.35-5.85 10^6/uL Hemoglobin 13.6 11.5-16.0 G/DL Hematocrit 42 35-52 % Mean Corpuscular Volume 80 80-99 FL Mean Corpuscular Hemoglobin 26 25-34 PG Mean Corpuscular Hemoglobin Concent 33 32-36 G/DL Red Cell Distribution Width 14.3 10.0-14.5 % Platelet Count 359 130-400 10^3/uL Mean Platelet Volume 9.6 7.4-10.4 FL Neutrophils (%) (Auto) 94 H 42-75 % Lymphocytes (%) (Auto) 2 L 12-44 % Monocytes (%) (Auto) 4 0-12 % Eosinophils (%) (Auto) 0 0-10 % Basophils (%) (Auto) 0 0-10 % Neutrophils # (Auto) 25.8 H 1.8-7.8 X 10^3 Lymphocytes # (Auto) 0.4 L 1.0-4.0 X 10^3 Monocytes # (Auto) 1.2 H 0.0-1.0 X 10^3 Eosinophils # (Auto) 0.0 0.0-0.3 10^3/uL Basophils # (Auto) 0.0 0.0-0.1 10^3/uL Neutrophils % (Manual) 79 % Lymphocytes % (Manual) 2 % Monocytes % (Manual) 8 % Eosinophils % (Manual) 0 % Basophils % (Manual) 0 % Band Neutrophils 11 % Poikilocytosis SLIGHT Microcytosis SLIGHT Elliptocytes SLIGHT Rouleau MOD Sodium Level 139 135-145 MMOL/L Potassium Level 3.6 3.6-5.0 MMOL/L Chloride Level 105 98-107 MMOL/L Carbon Dioxide Level 24 21-32 MMOL/L Anion Gap 10 5-14 MMOL/L Blood Urea Nitrogen 13 7-18 MG/DL Creatinine 0.89 0.60-1.30 MG/DL Estimat Glomerular Filtration Rate > 60 BUN/Creatinine Ratio 15 Glucose Level 115 H 70-105 MG/DL Calcium Level 8.9 8.5-10.1 MG/DL Corrected Calcium 9.1 8.5-10.1 MG/DL Total Bilirubin 0.7 0.1-1.0 MG/DL Aspartate Amino Transf (AST/SGOT) 17 5-34 U/L Alanine Aminotransferase (ALT/SGPT) 24 0-55 U/L Alkaline Phosphatase 116 40-136 U/L Total Protein 6.7 6.4-8.2 GM/DL Albumin 3.8 3.2-4.5 GM/DL Amylase Level 64 25-125 U/L Lipase 14 8-78 U/L Urine Color YELLOW Urine Clarity CLEAR Urine pH 7 5-9 Urine Specific [place] 1.005 L 1.016-1.022 Urine Protein NEGATIVE NEGATIVE Urine Glucose (UA) NEGATIVE NEGATIVE Urine Ketones 1+ H NEGATIVE Urine Nitrite NEGATIVE NEGATIVE Urine Bilirubin NEGATIVE NEGATIVE Urine Urobilinogen 1 NORMAL MG/DL Urine Leukocyte Esterase 2+ H NEGATIVE Urine RBC (Auto) 1+ H NEGATIVE Urine RBC RARE /HPF Urine WBC 5-10 H /HPF Urine Squamous Epithelial Cells 2-5 /HPF Urine Renal Epithelial Cells NONE /HPF Urine Crystals NONE /LPF Urine Bacteria TRACE /HPF Urine Casts NONE /LPF Urine Mucus SMALL H /LPF Urine Culture Indicated YES My Orders Orders - REYNALDO FREDERICK MD Amylase (02/04/18 14:47) Cbc With Automated Diff (02/04/18 14:47) Comprehensive Metabolic Panel (02/04/18 14:47) Lipase (02/04/18 14:47) Ua Culture If Indicated (02/04/18 14:47) Saline Lock/Iv-Start (02/04/18 14:47) Ns Iv 1000 Ml (Sodium Chloride 0.9%) (02/04/18 14:47) Ondansetron Injection (Zofran Injectio (02/04/18 15:00) Fentanyl Injection (Sublimaze Injection (02/04/18 14:47) Us Gallbladder [id number] (02/04/18 15:09) Manual Differential (02/04/18 15:45) Ct Abdomen/Pelvis W (02/04/18 16:44) Iohexol Injection (Omnipaque 350 Mg/Ml 1 (02/04/18 17:00) Sodium Chloride Flush (Catheter Flush Sy (02/04/18 17:00) Ns (Ivpb) (Sodium Chloride 0.9%) (02/04/18 17:00) Pharmacy Communication (Pharmacy Communi (02/04/18 16:46) Urine Culture (02/04/18 16:30) Medications Given in ED Current Medications Medications Dose Ordered Sig/Naveed Route Start Time Stop Time Status Last Admin Dose Admin Iohexol 100 ml ONCE ONCE IV 02/04/18 17:00 02/04/18 17:01 DC 02/04/18 17:18 100 ML Ondansetron HCl 4 mg ONCE ONCE IVP 02/04/18 15:00 02/04/18 15:01 DC 02/04/18 15:20 4 MG Sodium Chloride 10 ml NEEDED PRN IV 02/04/18 17:00 02/04/18 17:18 10 ML Sodium Chloride 250 ml ONCE ONCE IV 02/04/18 17:00 02/04/18 17:01 DC 02/04/18 17:18 80 ML Sodium Chloride 1,000 ml @ 0 mls/hr Q0M ONCE IV 02/04/18 14:47 02/04/18 14:49 DC 02/04/18 15:23 1,000 MLS/HR Vital Signs/I&O 02/04/18 14:48 Temp 97.9 Pulse 107 Resp 22 B/P (MAP) 129/73 (91) Pulse Ox 99 O2 Delivery Room Air Progress Progress Note : Progress Note Seen and evaluated. IV, labs, UA, ultrasound gallbladder, normal saline 1 L bolus and fentanyl 75 g IV ordered. Zofran 4 mg IV ordered. Monitor patient. 1635: Ultrasound negative. CT abdomen and pelvis ordered. Patient is feeling better. 1835: CT negative. Patient is still feeling better. Overall no significant findings. Patient may benefit from outpatient HIDA scan. I will send a copy of the chart to Dr. Chauhan. Discharged home with return precautions. Patient verbalize understanding instructions and agreement with plan. Diagnostic Imaging Diagonstic Imaging: Ultrasound Plain Films/CT/US/NM/MRI: abdomen Comments NAME: PHILIPPE GOLDBERG [facility] REC#: [id number] PT STATUS: REG ER : 1980 PHYSICIAN: REYNALDO FREDERICK MD ADMIT DATE: 02/04/18/ER Draft Date of Exam:02/04/18 US GALLBLADDER [id number] PROCEDURE: US Gallbladder. TECHNIQUE: Multiple real-time grayscale images were obtained over the right upper quadrant in various projections. INDICATION: Abdominal pain, vomiting. COMPARISON: None available. FINDINGS: The liver is unremarkable. The gallbladder is unremarkable. The common bile duct is within normal limits. The visualized portions of the pancreas are unremarkable, though portions of the pancreas are obscured by overlying bowel gas. The right kidney is unremarkable. No significant free fluid. Negative sonographic Sam's sign. IMPRESSION: Unremarkable examination without acute abnormality. Dictated on workstation # [id number] Dict: 02/04/18 1611 Trans: 02/04/18 1631 [id number] Interpreted by: ABIGAIL SCHMITZ MD Electronically signed by: Diagonstic Imaging: CT Plain Films/CT/US/NM/MRI: abdomen, pelvis Comments VIA [facility]. [place], [place] NAME: PHILIPPE GOLDBERG [facility] REC#: [id number] PT STATUS: REG ER : 1980 PHYSICIAN: REYNALDO FREDERICK MD ADMIT DATE: 02/04/18/ER Draft Date of Exam:02/04/18 CT ABDOMEN/PELVIS W PROCEDURE: CT abdomen and pelvis with contrast. TECHNIQUE: Multiple contiguous axial images were obtained through the abdomen and pelvis after administration of intravenous contrast. INDICATION: Right upper quadrant abdominal pain. Vomiting. COMPARISON: None. FINDINGS: Lung bases are clear. The liver, gallbladder, pancreas, spleen, adrenals, kidneys, unopacified bladder, and collecting systems are negative. Normal appendix. No free intraperitoneal air or fluid. No lymphadenopathy. The reproductive structures are grossly unremarkable. No evidence of bowel obstruction or inflammation. No acute osseous findings. IMPRESSION: No acute CT findings in the abdomen or pelvis. Dictated on workstation # [id number] Dict: 02/04/18 1720 Trans: 02/04/18 1729 [id number] [id number] Interpreted by: ABBEY ANSARI MD Electronically signed by: Departure Impression Primary Impression: Right upper quadrant abdominal pain Disposition: 01 HOME, SELF-CARE Condition: Stable Departure-Patient Inst. Decision time for Depature: 18:44 Referrals: JACEK CHAUHAN MD (PCP/Family) Primary Care Physician Patient Instructions: Acute Abdomen (Belly Pain), Adult (DC), Nausea and Vomiting, Adult (DC) Add. Discharge Instructions: All discharge instructions reviewed with patient and/or family. Voiced understanding. Clear liquid diet for 24 hours and then advance as tolerated. Follow-up with your DrCindy in 2-3 days for recheck and further evaluation. Return for worse pain , fever, vomiting, weakness, breathing problems or other concerns as needed. Copy Copies To 1: JACEK CHAUHAN MD, TIMOTHY D MD Feb 04, 2018 15:08
[2018-02-04 15:51] LABS: BASOPHILS % (AUTO) 0 % (0-10); EOSINOPHILS % (AUTO) 0 % (0-10); HEMATOCRIT 42 % (35-52); HEMOGLOBIN 13.6 G/DL (11.5-16.0); LYMPHOCYTES # (AUTO) 0.4 X 10^3 (1.0-4.0); LYMPHOCYTES % (AUTO) 2 % (12-44); MEAN CORPUSCULAR HEMOGLOBIN 26 PG (25-34); MEAN CORPUSCULAR HGB CONC 33 G/DL (32-36); MEAN CORPUSCULAR VOLUME 80 FL (80-99); MEAN PLATELET VOLUME 9.6 FL (7.4-10.4); MONOCYTES # (AUTO) 1.2 X 10^3 (0.0-1.0); MONOCYTES % (AUTO) 4 % (0-12); NEUTROPHILS # (AUTO) 25.8 X 10^3 (1.8-7.8); NEUTROPHILS % (AUTO) 94 % (42-75); PLATELET COUNT 359 10^3/uL (130-400); RED BLOOD COUNT 5.22 10^6/uL (4.35-5.85); RED CELL DISTRIBUTION WIDTH 14.3 % (10.0-14.5); WHITE BLOOD COUNT 27.4 10^3/uL (4.3-11.0)
[2018-02-04 16:15] LABS: ALANINE AMINOTRANSFERASE 24 U/L (0-55); ALBUMIN 3.8 GM/DL (3.2-4.5); ALKALINE PHOSPHATASE 116 U/L (40-136); AMYLASE 64 U/L (25-125); BILIRUBIN,TOTAL 0.7 MG/DL (0.1-1.0); BUN/CREATININE RATIO 15; CALCIUM 8.9 MG/DL (8.5-10.1); CARBON DIOXIDE 24 MMOL/L (21-32); CHLORIDE 105 MMOL/L (98-107); CREATININE SERUM 0.89 MG/DL (0.60-1.30); GFR ESTIMATED > 60; GLUCOSE 115 MG/DL (70-105); LIPASE 14 U/L (8-78); POTASSIUM 3.6 MMOL/L (3.6-5.0); SODIUM 139 MMOL/L (135-145); TOTAL PROTEIN 6.7 GM/DL (6.4-8.2)
[2018-02-04 16:32] LABS: BAND NEUTROPHILS 11 %; BASOPHILS % (MANUAL) 0 %; ELLIPT/OVALOCYTES SLIGHT; EOSINOPHILS % (MANUAL) 0 %; LYMPHOCYTES % (MANUAL) 2 %; MICROCYTOSIS SLIGHT; MONOCYTES % (MANUAL) 8 %; NEUTROPHILS % (MANUAL) 79 %; POIKILOCYTOSIS SLIGHT; ROULEAUX MOD
--- NOTE | 2018-02-04 16:32 | Diagnostic Imaging Report ---
PROCEDURE: US Gallbladder. TECHNIQUE: Multiple real-time grayscale images were obtained over the right upper quadrant in various projections. INDICATION: Abdominal pain, vomiting. COMPARISON: None available. FINDINGS: The liver is unremarkable. The gallbladder is unremarkable. The common bile duct is within normal limits. The visualized portions of the pancreas are unremarkable, though portions of the pancreas are obscured by overlying bowel gas. The right kidney is unremarkable. No significant free fluid. Negative sonographic Sam's sign. IMPRESSION: Unremarkable examination without acute abnormality. Dictated by: Dictated on workstation # [id number]
[2018-02-04 16:42] LABS: BILIRUBIN,URINE NEGATIVE (NEGATIVE); CLARITY,URINE CLEAR; COLOR,URINE YELLOW; GLUCOSE, URINE (UA) NEGATIVE (NEGATIVE); KETONES,URINE 1+ (NEGATIVE); LEUKOCYTE ESTERASE ,URINE 2+ (NEGATIVE); NITRITE,URINE NEGATIVE (NEGATIVE); PH,URINE 7 (5-9); PROTEIN,URINE NEGATIVE (NEGATIVE); UROBILINOGEN,URINE 1 MG/DL (NORMAL)
[2018-02-04 16:54] LABS: BACTERIA,URINE TRACE /HPF; RBC,URINE RARE /HPF
[2018-02-04] MEDS ORDERED: CATHETER FLUSH 10 ML SYR IV PRN (17:00)
[2018-02-04] MEDS ORDERED: IOHEXOL 350 MG/ML 100 ML (OMNIPAQUE 350) VIAL IV ONE (17:00)
[2018-02-04] MEDS ORDERED: NS 250 ML (IVPB) BAG IV ONE (17:00)
--- NOTE | 2018-02-04 17:29 | Diagnostic Imaging Report ---
PROCEDURE: CT abdomen and pelvis with contrast. TECHNIQUE: Multiple contiguous axial images were obtained through the abdomen and pelvis after administration of intravenous contrast. INDICATION: Right upper quadrant abdominal pain. Vomiting. COMPARISON: None. FINDINGS: Lung bases are clear. The liver, gallbladder, pancreas, spleen, adrenals, kidneys, unopacified bladder, and collecting systems are negative. Normal appendix. No free intraperitoneal air or fluid. No lymphadenopathy. The reproductive structures are grossly unremarkable. No evidence of bowel obstruction or inflammation. No acute osseous findings. IMPRESSION: No acute CT findings in the abdomen or pelvis. Dictated by: Dictated on workstation # [id number]
[2018-02-04 18:56] VITALS: BP 106/69
[2018-02-28] MEDS ORDERED: ACHD5005 PO (09:15)
== END 2018-02-04 18:56 | disposition home or self-care (01) ==
LOC: EDUNIT# 14:04 → ER 14:05
DX: R10.11 Right upper quadrant pain (principal); Z88.2 Allergy status to sulfonamides; Z80.8 Family history of malignant neoplasm of other organs or systems
CPT/HCPCS: 36415; 74177; 76705; 80053; 81000; 82150; 83690; 85007; 85027; 87077; 87088; 96361; 96374; 96375

== ENCOUNTER → 2018-02-16 | Outpatient (CLI) | payer BC, OTHER ==
[~2018-02-16] MED LIST changes: +ACHD5005 PO; +CATHETER FLUSH 10 ML SYR IV PRN
--- NOTE | 2018-02-16 14:21 | Diagnostic Imaging Report ---
INDICATION: Right upper quadrant pain. TECHNIQUE: Patient was administered 5.3 mCi technetium 99m Choletec intravenously and imaging over the abdomen was performed. At 60 minutes, patient ingested one can of Ensure and a gallbladder ejection fraction was calculated. FINDINGS: There is homogeneous uptake of activity by the liver. Prompt excretion of activity into the gallbladder is seen as well as the common duct. There is normal passage of activity into the small bowel. Gallbladder ejection fraction is low at 21%. IMPRESSION: 1. No evidence of cystic duct or common bile duct obstruction. 2. Low gallbladder ejection fraction of 21%. Dictated by: Dictated on workstation # [id number]
== END ==
LOC: CARD 11:51
PROVIDERS: ATTEND Nurse Practitioner Family
DX: R10.11 Right upper quadrant pain (principal)
CPT/HCPCS: 78227

== ENCOUNTER 2018-02-26 05:50 | Outpatient (CLI) | payer BC ==
[~2018-02-26] VITALS: Ht 157.5 cm; Wt 85.3 kg
[~2018-02-26 05:50] MED LIST changes: -ACHD5005 PO; -CATHETER FLUSH 10 ML SYR IV PRN
== END 2018-02-26 10:40 | disposition home or self-care (01) ==
LOC: PREOP 05:50
PROVIDERS: ATTEND Surgery
DX: Z01.818 Encounter for other preprocedural examination (principal)

== ENCOUNTER 2018-02-28 06:23 | Day surgery (SDC) | payer BC ==
[~2018-02-28] VITALS: Ht 157.5 cm; Wt 85.3 kg
[2018-02-28 06:30] VITALS: BP 111/78
[2018-02-28] MEDS ORDERED: ceFAZolin 2 GM IV Premixed 50 ML IV ONE (06:45)
[2018-02-28] MEDS ORDERED: metroNIDAZOLE 500MG/100ML IVPB 100 ML IV ONE (06:45)
[2018-02-28] MEDS ORDERED: SCOPOLAMINE 1.5 MG (TRANSDERM-SCOP) PATCH TOP ONE (07:00)
[2018-02-28] MEDS ORDERED: ONDANSETRON 4 MG/2 ML (SDV) Z0FRAN IV ONE (07:00)
[2018-02-28] MEDS ORDERED: CATHETER FLUSH 10 ML SYR IV PRN (07:00)
[2018-02-28] MEDS ORDERED: FAMOTIDINE 20MG/2ML IV (PEPCID) IV ONE (07:00)
[2018-02-28] MEDS ORDERED: SCOPOLAMINE 1.5 MG (TRANSDERM-SCOP) PATCH ONE (07:14)
[2018-02-28] MEDS ORDERED: ONDANSETRON 4 MG/2 ML (SDV) Z0FRAN ONE ×3 (07:14→09:05)
[2018-02-28] MEDS ORDERED: FAMOTIDINE 20MG/2ML IV (PEPCID) ONE (07:14)
[2018-02-28] MEDS ORDERED: MIDAZOLAM 2 MG/2 ML (VERSED) VIAL ONE (07:20)
[2018-02-28] MEDS ORDERED: fentaNYL INJECTION 100 MCG/2 ML AMP ONE (07:20)
[2018-02-28] MEDS ORDERED: BUP/EPI 0.5% 1:200,000 (SENSORCAINE) 30 ML VIAL ONE (07:22)
[2018-02-28] MEDS: LACTATED RINGERS 1,000 ML IV PRN ×2 (07:22→08:40)
--- NOTE | 2018-02-28 07:43 | Progress Note-Pre Operative ---
Pre-Operative Progress Note H&P Reviewed The H&P was reviewed, patient examined and no changes noted. Date Seen by Provider: Feb 22, 2018 Time Seen by Provider: 11:20 Date H&P Reviewed: Feb 28, 2018 Time H&P Reviewed: 07:42 Pre-Operative Diagnosis: Chronic acalculous cholecystitis LYNDSEY KNAPP MD Feb 28, 2018 07:43
[2018-02-28] MEDS ORDERED: KETOROLAC 30 MG/ML VIAL ONE (08:57)
[2018-02-28] MEDS ORDERED: SEVOFLURANE (ULTANE) 15 ML INHAL SOLN ONE ×2 (08:57→09:04)
[2018-02-28] MEDS ORDERED: LIDOCAINE PF 2% 2 ML (XYLOCAINE) VIAL ONE (08:57)
[2018-02-28] MEDS ORDERED: ROCURONIUM 10 MG/ML 5 ML SYRINGE IV ONE (08:57)
[2018-02-28] MEDS ORDERED: proPOfol 200 MG/20 ML (DIPRIVAN) VIAL IV ONE (08:57)
[2018-02-28] MEDS ORDERED: NEOSTIGMINE 1 MG/ML 5 ML SYRINGE ONE (09:04)
[2018-02-28] MEDS ORDERED: GLYCOPYRROLATE 0.2 MG/ML (ROBINUL) 2 ML VIAL ONE (09:04)
[2018-02-28] MEDS ORDERED: morphine INJ 10 MG/ML 1ML (SYR OR VIAL) ONE (09:08)
--- NOTE | 2018-02-28 09:14 | Operative Report ---
Operative Report Date of Procedure/Surgery Feb 28, 2018 Surgeon (s) LYNDSEY KNAPP MD Post Closer (s): N/A Post-Operative Diagnosis Same Procedure Performed Robotic-assisted cholecystectomy Description of Procedure Anesthesia Type: General Estimated blood loss (mL): Minimal Specimen(s) collected/removed Gallbladder Description of the Procedure Indication for the procedure: This lady presented with severe and typical symptoms of chronic, acalculous cholecystitis, along with reduced ejection fraction of the gallbladder. She was therefore offered prompt cholecystectomy using minimally invasive technique with robotic assistance. Informed consent was obtained after reviewing the operative details and complications of wound infection, bile leak and persistence of her symptoms. Description of the procedure: She was placed supine on the operating table and general anesthesia induced. 2 g of Ancef and 500 mg of Flagyl were administered intravenously as prophylaxis against wound infection. Sequential compression devices were placed around her legs, to minimize the risk of venous thrombosis. Abdomen was prepared and draped in the usual sterile manner. An infraumbilical incision was made and pneumoperitoneum established using Veress needle. Intra- abdominal pressure was maintained at 15 mmHg using carbon dioxide insufflation. A12 mm trocar was placed and anatomy visualized using the high definition, 3- dimensional laparoscope associated with da Shereen system. Under direct view, I placed an 8 mm trocar over each side of the abdomen, followed by a 5 mm trocar over the left upper quadrant. She was then turned into reverse Trendelenburg position, with the right side tilted up. The robotic system was then docked in place. Omentum was adherent to the body of the gallbladder and taken down using the hook cautery. The fundus of the gallbladder was then retracted cephalad and the infundibulum grasped with Cadiere forceps. Peritoneum overlying Calot's triangle was incised using the hook cautery, delineating the cystic duct and artery. Both were divided between locking clips. Cholecystectomy was then completed using the hook cautery. Subhepatic space was irrigated with saline and the gallbladder laced in an Endo Catch bag, being removed via the subumbilical trocar site. The fascia over this incision was closed using #1 Vicryl using the Kaiden Benavides device, under direct view. Skin incisions were closed using 4-0 Vicryl, in a subcuticular fashion. She tolerated the procedure well, was extubated in the operating room and taken to the recovery room in a stable condition. Findings of the Procedure See op report Allergies and Home Medications Allergies Coded Allergies: Sulfa (Sulfonamide Antibiotics) (Verified Allergy, Mild, FEVER, N/V, ) Home Medications Vit W-Ca,Fe,FA(<1 mg) 1 Each Tablet, 1 EACH PO DAILY, (Reported) Patient Home Medication List Home Medication List Reviewed: Yes LYNDSEY KNAPP MD Feb 28, 2018 09:14
[2018-02-28] MEDS ORDERED: ACHD5005 PO (09:15)
--- NOTE | 2018-02-28 09:16 | Discharge Inst-Simple/Standard ---
Discharge Inst-Standard Discharge Medications New, Converted or Re-Newed RX: RX on Chart Patient Instructions/Follow Up Plan of Care/Instructions/FU: Band-Aids off in 48 hours. Incentive spirometry. Follow-up in 3 weeks Activity as Tolerated: Yes Discharge Diet: No Restrictions LYNDSEY KNAPP MD Feb 28, 2018 09:16
[2018-02-28] MEDS ORDERED: HYDROmorphone 2 MG/ML VIAL (DILAUDID) ONE (09:21)
[2018-02-28] MEDS ORDERED: ONDANSETRON 4 MG/2 ML (SDV) Z0FRAN IVP PRN (09:30)
[2018-02-28] MEDS ORDERED: HYDROmorphone 2 MG/ML VIAL (DILAUDID) IV ONE (09:30)
[2018-02-28] MEDS ORDERED: morphine INJ 10 MG/ML 1ML (SYR OR VIAL) IVP ONE (09:30)
[2018-02-28] MEDS ORDERED: PROMETHAZINE INJ 25 MG/ML (PHENERGAN) AMP IVP ONE (09:30)
[2018-02-28 10:25] VITALS: BP 106/68
[2018-02-28 10:55] VITALS: BP 99/60
--- NOTE | 2018-02-28 11:03 | Anesthesia-General Post-Op ---
General Patient Condition Mental Status/LOC: Same as Preop Cardiovascular: Satisfactory Nausea/Vomiting: Absent Respiratory: Satisfactory Pain: Controlled Complications: Absent Post Op Complications Complications None Follow Up Care/Instructions Patient Instructions None needed. Anesthesia/Patient Condition Patient Condition Patient is doing well, no complaints, stable vital signs, no apparent adverse anesthesia problems. No complications reported per nursing. DEIDRE TAFOYA CRNA Feb 28, 2018 11:03
[2018-02-28 11:25] VITALS: BP 99/61
[2018-02-28] MEDS ORDERED: ONDANSETRON 4 MG (ZOFRAN) ORAL DISSOLVE TAB ONE (12:05)
[2018-02-28] MEDS ORDERED: ONDANSETRON 4 MG (ZOFRAN) ORAL DISSOLVE TAB PO ONE (12:15)
[2018-02-28 12:30] VITALS: BP 99/61
== END 2018-02-28 12:30 | disposition home or self-care (01) ==
LOC: SDC 06:23
PROVIDERS: ATTEND Surgery
DX: K81.1 Chronic cholecystitis (principal); Z11.2 Encounter for screening for other bacterial diseases; Z85.3 Personal history of malignant neoplasm of breast; E66.9 Obesity, unspecified; Z68.34 Body mass index [BMI] 34.0-34.9, adult
CPT/HCPCS: 84703; 87081

== ENCOUNTER → 2019-08-13 | Outpatient (CLI) | payer BC ==
[~2019-08-13] MED LIST changes: +ACHD5005 PO
--- NOTE | 2019-08-13 14:57 | Diagnostic Imaging Report ---
INDICATION: Routine screening. No prior mammograms are available for comparison. This is a baseline study. 2-D and 3-D bilateral screening mammography was performed with CAD. Scattered fibroglandular densities are identified bilaterally. No dominant mass or malignant appearing microcalcifications are seen. Axillae are unremarkable. IMPRESSION: BI-RADS Category 1 No mammographic features suspicious for malignancy are identified. ACR BI-RADS Category 1: Negative. Result letter will be mailed to the patient. Note: At least 10% of breast cancer is not imaged by mammography. Dictated by: Dictated on workstation # [id number]
== END ==
LOC: RAD 13:23
PROVIDERS: ATTEND Nurse Practitioner Women's Health
DX: Z12.31 Encounter for screening mammogram for malignant neoplasm of breast (principal)
CPT/HCPCS: 77067

== ENCOUNTER 2020-07-28 15:18 | Outpatient (RCR) | payer BC | END 2020-08-31 | disposition home or self-care (01) | PROVIDERS: ATTEND Nurse Practitioner Family | DX: M54.2 Cervicalgia (principal); Z90.49 Acquired absence of other specified parts of digestive tract; Z98.890 Other specified postprocedural states ==

== ENCOUNTER → 2020-09-07 | Outpatient (CLI) | payer BC ==
--- NOTE | 2020-09-07 16:50 | Diagnostic Imaging Report ---
EXAM: CERVICAL SPINE 3 VIEWS OR LESS INDICATION: Neck pain. COMPARISON: Soft tissue neck CT 10/10/2012. FINDINGS: Normal alignment. Vertebral body heights preserved. No substantial spondylotic change. No fractures identified. Normal prevertebral soft tissues. IMPRESSION: Negative cervical spine radiographs. Dictated by: Dictated on workstation # [id number]
== END ==
LOC: RAD 15:21
PROVIDERS: ATTEND Nurse Practitioner Family
DX: M54.2 Cervicalgia (principal)
CPT/HCPCS: 72040

== ENCOUNTER → 2021-03-26 | Outpatient (CLI) | payer BC ==
--- NOTE | 2021-03-26 12:21 | Diagnostic Imaging Report ---
Indication: Routine screening. Comparison is made with prior mammogram from 08/13/2019. 2-D and 3-D bilateral screening mammography was performed with CAD. Scattered fibroglandular densities are identified bilaterally. The parenchymal pattern is stable. No mass or malignant-appearing microcalcifications are seen. Axillae are unremarkable. IMPRESSION: BI-RADS Category 1 No mammographic features suspicious for malignancy are identified. ACR BI-RADS Category 1: Negative. Result letter will be mailed to the patient. Note: At least 10% of breast cancer is not imaged by mammography. Dictated by: Dictated on workstation # [id number]
== END ==
LOC: RAD 10:51
PROVIDERS: ATTEND Obstetrics & Gynecology
DX: Z12.31 Encounter for screening mammogram for malignant neoplasm of breast (principal)
CPT/HCPCS: 77063; 77067

== ENCOUNTER → 2022-04-05 | Outpatient (CLI) | payer BC ==
--- NOTE | 2022-04-05 16:07 | Diagnostic Imaging Report ---
INDICATION: Routine screening. COMPARISON: 03/26/2021 and 08/13/2019. TECHNIQUE: 2D and 3D bilateral screening mammography was performed with CAD. FINDINGS: Scattered fibroglandular densities are identified bilaterally. The parenchymal pattern appears stable. No mass or malignant appearing microcalcifications are seen. The axillae are unremarkable. IMPRESSION: No mammographic features suspicious for malignancy are identified. ACR BI-RADS Category 1: Negative. Result letter will be mailed to the patient. Note: At least 10% of breast cancer is not imaged by mammography. Dictated by: Dictated on workstation # [id number]
== END ==
LOC: RAD 08:20
PROVIDERS: ATTEND Nurse Practitioner Women's Health
DX: Z12.31 Encounter for screening mammogram for malignant neoplasm of breast (principal)
CPT/HCPCS: 77063; 77067

== ENCOUNTER → 2023-04-18 | Outpatient (CLI) | payer BC ==
--- NOTE | 2023-04-18 10:30 | Diagnostic Imaging Report ---
EXAMINATION: 3D bilateral screening mammogram with CAD. INDICATION: Screening. COMPARISON: This study was compared to the prior exams of 04/05/2022, 03/26/2021, and 08/13/2019. PERSONAL HISTORY: At this time, there are no current complaints. FINDINGS: The fibroglandular tissue in both breasts is heterogeneously dense. This does limit the sensitivity of this exam. On the craniocaudad view of the left breast deep in the midportion of the breast, there is a small 7 mm asymmetry. There is no corresponding abnormality seen on the MLO view and the tomographic images of this area in the CC projection suggest that this finding is secondary to superimposition of the fibroglandular tissue alone. There is no primary or secondary sign of malignancy noted. IMPRESSION: There is no evidence for malignancy. ACR BI-RADS Category 1: Negative. Result letter will be mailed to the patient. Note: At least 10% of breast cancer is not imaged by mammography. Dictated by: Dictated on workstation # [id number]
== END ==
LOC: RAD 08:04
PROVIDERS: ATTEND Nurse Practitioner Women's Health
DX: Z12.31 Encounter for screening mammogram for malignant neoplasm of breast (principal)
CPT/HCPCS: 77063; 77067